=== PATIENT | male | born 1995 | race Caucasian/White ===

== ENCOUNTER 2018-07-03 12:54 | Emergency (ER) | payer OTHER ==
[~2018-07-03] VITALS: Ht 177.8 cm; Wt 71.0 kg
[2018-07-03 12:56] VITALS: BP 108/72
== END 2018-07-03 15:17 | disposition left against medical advice (07) ==
LOC: ER 12:54
DX: R53.1 Weakness (principal); Z53.21 Procedure and treatment not carried out due to patient leaving prior to being seen by health care provider